=== PATIENT | female | born 1965 | race African-American/Black ===

== ENCOUNTER 2024-12-05 08:48 | Emergency (ER) | payer OTHER ==
--- OUTSIDE RECORDS SUMMARY | 2024-12-05 08:52 | XMS REPORT | Continuity of Care Document ---
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 Emergency X Gibran PAZ [facility] ERT [id number] [facility] 2021-07-17 20:07:00 2021-07-17 21:50:00 Emergency Gibran Paz [facility] 1.2.840.114 350.1.13.10 4.2.7.2.686 [id number] [facility] 2021-07-17 20:07:00 2021-07-17 21:50:00 Emergency X Gibran PAZ [facility] ERT [id number] [facility] 2021-05-27 14:52:04 2021-05-27 15:22:04 [facility] 1.2.840.114 350.1.13.10 4.2.7.2.686 [id number] [facility] 2021-05-27 15:00:00 2021-05-27 15:00:00 Outpatient ELLIOTT CANNON [facility] [id number] [facility] 2021-05-27 00:00:00 2021-05-27 00:00:00 Orders Only Doctor Unassigned, [place] [facility] 1.2.840.114 350.1.13.10 4.2.7.2.686 [id number] [facility] 2021-05-26 15:00:00 2021-05-26 15:00:00 Outpatient ELLIOTT CANNON [facility] [id number] [facility] 2021-01-28 00:00:00 2021-01-28 00:00:00 Orders Only Doctor Unassigned, [place] [facility] 1.2840.114 350.1.13.10 4.2.7.2.686 [id number] [facility] 2021-01-07 22:18:00 2021-01-07 22:59:00 Emergency Adolph Jerry [facility] 1.2840.114 350.1.13.10 4.2.7.2.686 [id number] [facility] 2020-11-01 13:45:00 2020-11-01 13:45:00 Outpatient [facility] [id number] [facility] 2020-10-04 13:35:00 2020-10-04 13:35:00 Outpatient [facility] [id number] [facility] 2020-04-12 00:00:00 2020-04-12 00:00:00 Patient Secure Msg Doctor Unassigned, [place] [facility] 1.2840.114 350.1.13.10 4.2.7.2.686 [id number] [facility] 2020-04-12 00:00:00 2020-04-12 00:00:00 Letter (Out) Rena Oden [facility] 1.2840.114 350.1.13.10 4.2.7.2.686 [id number] [facility] 2020-04-12 00:00:00 2020-04-12 00:00:00 Letter (Out) AkshatRena malave [facility] 1.2.840.114 350.1.13.10 4.2.7.2.686 [id number] 2020-04-10 15:00:34 2020-04-10 15:45:43 Laboratory Only Only, Adc Test Bryant Whalen [facility] 1.2.840.114 350.1.13.10 4.2.7.2.686 [id number] [facility] 2020-04-10 15:00:34 2020-04-10 15:45:43 Laboratory Only Only, Adc Test [facility] 1.2.840.114 350.1.13.10 4.2.7.2.686 [id number] 2020-04-10 14:15:00 2020-04-10 14:15:00 Outpatient R [facility] [id number] [facility] 2020-04-10 00:00:00 2020-04-10 00:00:00 Orders Only Doctor Unassigned, [place] [facility] 1.2.840.114 350.1.13.10 4.2.7.2.686 [id number] [facility] 2020-01-07 13:00:00 2020-01-07 13:00:00 Outpatient R ELLIOTT OLIVAS [facility] [id number] [facility] 2019-10-07 12:58:35 2019-10-07 16:01:06 Office Visit Elliott Olivas [facility] 1.2.840.114 350.1.13.10 4.2.7.2.686 [id number] [facility] 2019-10-07 13:00:00 2019-10-07 13:00:00 Outpatient ELLIOTT CANNON [facility] [id number] [facility] 2019-09-12 00:00:00 2019-09-12 00:00:00 Telephone Elliott Olivas [facility] 1.2.840.114 350.1.13.10 4.2.7.2.686 [id number] [facility] 2019-09-10 13:34:52 2019-09-10 14:41:20 Office Visit Elliott Olivas [facility] 1.2.840.114 350.1.13.10 4.2.7.2.686 [id number] [facility] 2019-09-10 13:00:00 2019-09-10 13:00:00 Outpatient ELLIOTT CANNON [facility] [id number] [facility] 2019-09-10 00:00:00 2019-09-10 00:00:00 Orders Only Doctor Unassigned, [place] [facility] 1.2.840.114 350.1.13.10 4.2.7.2.686 [id number] [facility] 2019-09-02 12:56:44 2019-09-02 15:43:21 Office Visit Elliott Olivas [facility] 1.2.840.114 350.1.13.10 4.2.7.2.686 [id number] [facility] 2019-09-02 13:00:00 2019-09-02 13:52:48 Outpatient ELLIOTT CANNON [facility] [id number] [facility] 2019-09-02 00:00:00 2019-09-02 00:00:00 Orders Only Doctor Unassigned, [place] [facility] 1.2.840.114 350.1.13.10 4.2.7.2.686 [id number] [facility] 2019-08-23 09:30:41 2019-08-23 11:18:00 Emergency Kim Huffman [facility] 1.2.840.114 350.1.13.10 4.2.7.2.686 [id number] [facility] 2019-08-23 09:30:41 2019-08-23 11:18:00 Emergency X KIM HUFFMAN [facility] ERT [id number] [facility] 2019-08-23 00:00:00 2019-08-23 00:00:00 Transition of Care DeangeloPato carlson 1.840.114 350.1.13.10 4.2.7.2.686 [id number] [facility] 2019-08-19 16:20:02 2019-08-22 11:40:00 Hospital Encounter Jovanny Davis [facility] 1.840.114 350.1.13.10 4.2.7.2.686 [id number] [facility] 2019-08-19 12:28:26 2019-08-19 14:59:00 Emergency X MONIK STEELE [facility] ERT [id number] [facility] 2019-08-12 00:00:00 2019-08-12 00:00:00 Orders Only Doctor Unassigned, [place] [facility] 1.2840.114 350.1.13.10 4.2.7.2.686 [id number] [facility] Results Test Description Test Time Test Comments Results Result Comments Source XR Foot 3+ vw right 15:15:20 EXAM: XR FOOT 3+ VW RIGHT, EXAM: XR ANKLE 3+ VW RIGHT, EXAM: XR TIBIA FIBULA 2 VW RIGHT HISTORY: 59 years old Female with right foot pain COMPARISON: None. FINDINGS: Radiographs of the right tibial/fibula, ankle and foot were obtained. Noacute fracture or dislocations. Alignment is within normal limits. Marginalosteophytosis about the knee and tibiotalar joint are noted with preservedjoint spaces. Dorsal and plantar calcaneal enthesophyte formation is noted.Round mineralization projecting over the soft tissue overlying the distalfibula may represent a phlebolith versus dystrophic calcification. Soft tissue swelling is noted about the lateral malleolus and dorsum of thefoot. Ankle joint effusion is suspected. [facility] XR Tibia fibula 2 vw right 15:15:20 EXAM: XR FOOT 3+ VW RIGHT, EXAM: XR ANKLE 3+ VW RIGHT, EXAM: XR TIBIA FIBULA 2 VW RIGHT HISTORY: 59 years old Female with right foot pain COMPARISON: None. FINDINGS: Radiographs of the right tibial/fibula, ankle and foot were obtained. Noacute fracture or dislocations. Alignment is within normal limits. Marginalosteophytosis about the knee and tibiotalar joint are noted with preservedjoint spaces. Dorsal and plantar calcaneal enthesophyte formation is noted.Round mineralization projecting over the soft tissue overlying the distalfibula may represent a phlebolith versus dystrophic calcification. Soft tissue swelling is noted about the lateral malleolus and dorsum of thefoot. Ankle joint effusion is suspected. [facility] XR Ankle 3+ vw right 15:15:20 EXAM: XR FOOT 3+ VW RIGHT, EXAM: XR ANKLE 3+ VW RIGHT, EXAM: XR TIBIA FIBULA 2 VW RIGHT HISTORY: 59 years old Female with right foot pain COMPARISON: None. FINDINGS: Radiographs of the right tibial/fibula, ankle and foot were obtained. Noacute fracture or dislocations. Alignment is within normal limits. Marginalosteophytosis about the knee and tibiotalar joint are noted with preservedjoint spaces. Dorsal and plantar calcaneal enthesophyte formation is noted.Round mineralization projecting over the soft tissue overlying the distalfibula may represent a phlebolith versus dystrophic calcification. Soft tissue swelling is noted about the lateral malleolus and dorsum of thefoot. Ankle joint effusion is suspected. [facility] COMPREHENSIVE METABOLIC [id number] 04:41:30* Test Item Value Reference Range Interpretation Comme nts GLUCOSE (test code = 2217) 109 MG/DL 70-99 H BUN (test code = 2208) 17 MG/DL 6-20 CREATININE (test code = 2214) 0.99 MG/DL 0.60-1.30 eGFR (2020 CKD-EPI) (test code = 54871) 66 ML/MIN/1.73 >60 CALC BUN/CREAT (test code = 2235) 17 RATIO 6-28 SODIUM (test code = 2231) 142 MEQ/L 133-146 POTASSIUM (test code = 8) 4.3 MEQ/L 3.5-5.4 CHLORIDE (test code = 2215) 106 MEQ/L 95-107 CARBON DIOXIDE (test code = 2205) 25 MEQ/L 19-31 CALCIUM (test code = 2208) 9.2 MG/DL 8.5-10.5 PROTEIN, TOTAL (test code = 2228) 7.0 G/DL 6.1-8.3 ALBUMIN (test code = 2200) 4.3 G/DL 3.5-5.2 CALC GLOBULIN (test code = 2239) 2.7 G/DL 1.9-3.7 CALC A/G RATIO (test code = 2233) 1.6 RATIO 1.0-2.6 BILIRUBIN, TOTAL (test code = 2206) 0.3 MG/DL See_Comment [Automated me ssage] The system which generated this result transmitted reference range: <=1.2. The reference range was not used to interpret this result as normal/abnormal. ALKALINE PHOSPHATASE (test code = 2203) 107 U/L 40-136 AST (test code = 2217) 20 U/L 9-40 ALT (test code = 2219) 16 U/L 5-40 UNLESS OTHERWISE INDICATED, ALL TESTING PERFORMED [facility] [place] [facility] [employer] [address] [place] [address] TAX EXPERT: MARCO GARCIA M.D. CLIA NUMBER [id number] [facility]. [id number] HEMOGLOBIN [id number] 03:54:58* Test Item Value Reference Range Interpretation Comme [facility] HEMOGLOBIN A1c (test code = 00614) 6.5 % 4.2-5.6 H [employer] GUIDELINES FOR HGB A1C: PREDIABETES/INCREASED RISK . . . . . . . 5.7-6.4% DIAGNOSIS OF DIABETES . . . . . . . . . >=6.5% WITH CONFIRMATION OR APPROPRIATE SYMPTOMS NOTE: ASSAY MAY BE AFFECTED BY HEMOGLOBINOPATHIES (SICKLE CELL ANEMIA, S-C DISEASE, OTHERS) OR ARTIFICIALLY LOWERED BY DECREASED RED CELL SURVIVAL (HEMOLYTIC ANEMIAS, BLOOD LOSS, ETC.). CONSIDER ALTERNATE TESTING OR LABORATORY CONSULTATION. HEMOGLOBIN A1c [ADDED]2022-03-12 00:00:00* Test Item Value Reference Range Interpretation Comme nts HEMOGLOBIN A1c (test code = 43933) 6.5 % LIPID PANEL [ADDED]2022-03-12 00:00:00* Test Item Value Reference Range Interpretation Comme nts CHOLESTEROL (test code = 2210) 210 MG/DL TRIGLYCERIDES (test code = 2232) 94 MG/DL HDL CHOLESTEROL (test code = 2220) 66 MG/DL CALC LDL CHOL (test code = 2237) 124 MG/DL RISK RATIO LDL/HDL (test cod e = 2238) 1.88 RATIO COMPREHENSIVE METABOLIC PANEL [ADDED]2022-03-12 00:00:00* Test Item Value Reference Range Interpretation Comme nts GLUCOSE (test code = 2217) 109 MG/DL BUN (test code = 2208) 17 MG/DL CREATININE (test code = 2214) 0.99 MG/DL eGFR (2020 CKD-EPI) (test co de = 76905) 66 ML/MIN/1.73 CALC BUN/CREAT (test code = 2235) 17 RATIO SODIUM (test code = 2231) 142 MEQ/L POTASSIUM (test code = 2228) 4.3 MEQ/L CHLORIDE (test code = 2215) 106 MEQ/L CARBON DIOXIDE (test code = 2206) 25 MEQ/L CALCIUM (test code = 2209) 9.2 MG/DL PROTEIN, TOTAL (test code = 2229) 7.0 G/DL ALBUMIN (test code = 2201) 4.3 G/DL CALC GLOBULIN (test code = 2240) 2.7 G/DL CALC A/G RATIO (test code = 2234) 1.6 RATIO BILIRUBIN, TOTAL (test code = 2207) 0.3 MG/DL ALKALINE PHOSPHATASE (test code = 2204) 107 U/L AST (test code = 2218) 20 U/L ALT (test code = 2219) 16 U/L OCCULT BLD,FECAL,IMMUNOASSAY [id number] 09:10:23* Test Item Value Reference Range Interpretation Comme nts OCCULT BLD, FECAL (test code = 09366) NEGATIVE NEGATIVE NOTE:2021-12-22 06:04:47* Test Item Value Reference Range Interpretation Comme nts NOTE: (test code = 998) (NOTE) IN ACCORDANCE [facility] FEDERAL GUIDELINES REQUIRING ALL VERBAL REQUESTS FOR LABORATORY TESTS TO BE ACCOMPANIED BY WRITTEN AUTHORIZATION WITHIN 30 DAYS OF THIS REQUEST, PLEASE SIGN BELOW AND RETURN A COPY OF THIS REPORT BY FAX TO THE LABORATORY SCANNING DEPARTMENT AT [phone]. PHYSICIAN'S SIGNATURE DATE UNLESS OTHERWISE INDICATED, ALL TESTING PERFORMED [facility] [employer] [address] [place] [address] TAX EXPERT: MARCO GARCIA M.D. [place] NUMBER [id number] [facility]. [id number] OCCULT BLD,FECAL,IMMUNOASSAY DIAG [ADDED]2021-12-22 00:00:00* Test Item Value Reference Range Interpretation Comme nts OCCULT BLD, FECAL (test code = 56678) NEGATIVE NOTE: [ADDED]2021-12-22 00:00:00* Test Item Value Reference Range Interpretation Comme nts NOTE: (test code = 998) (NOTE) COMPREHENSIVE METABOLIC [id number] 03:25:43* Test Item Value Reference Range Interpretation Comme nts GLUCOSE (test code = 2217) 100 MG/DL 70-99 H BUN (test code = 2208) 14 MG/DL 6-20 CREATININE (test code = 2214) 1.03 MG/DL 0.60-1.30 eGFR (2020 CKD-EPI) (test code = 90602) 63 ML/MIN/1.73 >60 CALC BUN/CREAT (test code = 2235) 14 RATIO 6-28 SODIUM (test code = 2231) 143 MEQ/L 133-146 POTASSIUM (test code = 2228) 4.2 MEQ/L 3.5-5.4 CHLORIDE (test code = 2215) 105 MEQ/L 95-107 CARBON DIOXIDE (test code = 2206) 24 MEQ/L 19-31 CALCIUM (test code = 2209) 9.5 MG/DL 8.5-10.5 PROTEIN, TOTAL (test code = 2229) 7.2 G/DL 6.1-8.3 ALBUMIN (test code = 2201) 4.3 G/DL 3.5-5.2 CALC GLOBULIN (test code = 2240) 2.9 G/DL 1.9-3.7 CALC A/G RATIO (test code = 2234) 1.5 RATIO 1.0-2.6 BILIRUBIN, TOTAL (test code = 2207) 0.5 MG/DL See_Comment [Automated me ssage] The system which generated this result transmitted reference range: <=1.2. The reference range was not used to interpret this result as normal/abnormal. ALKALINE PHOSPHATASE (test code = 2204) 110 U/L 40-136 AST (test code = 2218) 14 U/L 9-40 ALT (test code = 2219) 10 U/L 5-40 UNLESS OTHERWISE INDICATED, ALL TESTING PERFORMED [facility] [place] [facility] [employer] [address] [place] [address] TAX EXPERT: MARCO GARCIA M.D. CLIA NUMBER [id number] [facility]. [id number] LIPID [id number] 03:25:43* Test Item Value Reference Range Interpretation Comme nts CHOLESTEROL (test code = 2210) 211 MG/DL <200 H TRIGLYCERIDES (test code = 2232) 113 MG/DL <150 HDL CHOLESTEROL (test code = 2220) 70 MG/DL >39 CALC LDL CHOL (test code = 2237) 119 MG/DL <100 H NOTE: CALCULATED LDL IS BASED ON SAFIA-BROOKS METHOD WHICHINCLUDES ADJUSTABLE TRIGLYCERIDE:VLDL CHOLESTEROL RATIO.THIS FACTOR VARIES BY MEASURED TRIGLYCERIDE AND NON-HDLCHOLESTEROL CONCENTRATIONS WITH INCREASED CALCULATED LDL SEENIN HIGHER TRIGLYCERIDE OR LOWER NON-HDL SPECIMENS. FOR MOREINFORMATION, SEE CLIENT ANNOUNCEMENT AT [email or web address] /[email or web address] RISK RATIO LDL/HDL (test code = 2238) 1.70 RATIO <3.22 HEMOGLOBIN [id number] 02:20:53* Test Item Value Reference Range Interpretation Comme nts HEMOGLOBIN A1c (test code = 25387) 6.1 % 4.2-5.6 H LIPID PANEL [ADDED]2021-11-19 00:00:00* Test Item Value Reference Range Interpretation Comme nts CHOLESTEROL (test code = 2210) 211 MG/DL TRIGLYCERIDES (test code = 2232) 113 MG/DL HDL CHOLESTEROL (test code = 2220) 70 MG/DL CALC LDL CHOL (test code = 2237) 119 MG/DL RISK RATIO LDL/HDL (test cod e = 2238) 1.70 RATIO HEMOGLOBIN A1c [ADDED]2021-11-19 00:00:00* Test Item Value Reference Range Interpretation Comme nts HEMOGLOBIN A1c (test code = 69328) 6.1 % COMPREHENSIVE METABOLIC PANEL [ADDED]2021-11-19 00:00:00* Test Item Value Reference Range Interpretation Comme nts GLUCOSE (test code = 2217) 100 MG/DL BUN (test code = 2208) 14 MG/DL CREATININE (test code = 2214) 1.03 MG/DL eGFR (2020 CKD-EPI) (test co de = 54211) 63 ML/MIN/1.73 CALC BUN/CREAT (test code = 2235) 14 RATIO SODIUM (test code = 2231) 143 MEQ/L POTASSIUM (test code = 2228) 4.2 MEQ/L CHLORIDE (test code = 2215) 105 MEQ/L CARBON DIOXIDE (test code = 2206) 24 MEQ/L CALCIUM (test code = 2209) 9.5 MG/DL PROTEIN, TOTAL (test code = 2229) 7.2 G/DL ALBUMIN (test code = 2201) 4.3 G/DL CALC GLOBULIN (test code = 2240) 2.9 G/DL CALC A/G RATIO (test code = 2234) 1.5 RATIO BILIRUBIN, TOTAL (test code = 2207) 0.5 MG/DL ALKALINE PHOSPHATASE (test code = 2204) 110 U/L AST (test code = 2218) 14 U/L ALT (test code = 2219) 10 U/L Notes Date/Time Note Provider Source 2024-11-28 10:42:58 Pt given printed and verbal discharge instructions regarding acute right ankle pain. Prescriptions provided x1 Pt verbalized understanding of instructions, pt awake alert oriented, resp reg unlabored, skin w/d, color appropriate for race, moves all ext well,pt encouraged to follow up with pcp. Advised to seek medical attention for new/prolonged/worsening of symptoms. No adverse reaction to meds given in ER noted upon discharge Awake, alert oriented, resp reg unlabored, skin w/d, pt leaving amb with steady gait, in no apparent distress, [facility] 2024-11-28 08:29:47 Pt arrived ambulatory with complaints of R ankle pain. 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 Pt given printed and verbal discharge instructions regarding left foot pain and muscle strain of the left upper arm, encouraged hydration. Prescriptions provided. Discussed naproxen and to take with food to avoid GI distress. Pt verbalized understanding of instructions, pt awake alert oriented, resp reg unlabored, skin w/d, color appropriate for race, moves all ext well, pt encouraged to follow up with pcp. Advised to seek medical attention for new/prolonged/worsening of symptoms. Symptoms addressed. No adverse reaction to meds given in ER noted upon discharge. Pt leaving amb with steady gait, in no apparent distress. Phoebe Servin RN [facility] 2023-04-12 09:28:10 Formatting of this n ote might be different from the original. Pt fell over a month ago. Has intermittent pain to left foot. Tight feeling when she bends left wrist back with pain that radiates up forearm. Xiomara Harris RN [facility] 2023-03-19 23:12:39 Formatting of this n ote might be different from the original. Pt given printed and verbal discharge instructions regarding fall/knee contusion/HTN, encouraged hydration, Discussed ibuprofen and to take with food to avoid GI distress, alternate with Tylenol to help with pain and/or fever Pt verbalized understanding of instructions,pt encouraged to follow up with pcp Advised to seek medical attention for new/prolonged/worsening of symptoms, No adverse reaction to meds given in ER noted upon discharge Awake, alert oriented, resp reg unlabored, skin w/d, pt leaving in no apparent distress, [facility] 2023-03-19 21:11:38 Formatting of this n ote might be different from the original. CC: Pt slipped and fell in [employer], reports doing the splits backwards x at 2 hrs ago. Her left knee has an abrasion and is painful and her left hand hurts. No OTC meds PMHx: DM, HTN Awake, alert, oriented, resp reg unlabored, skin warm, color appropriate for race, moves all ext without difficulty, amb with steady gait Madelin Barreto RN [facility]
[2024-12-05] MEDS ORDERED: KETOROLAC 30 MG/ML INJ ONE (09:51)
[2024-12-05] MEDS ORDERED: ONDANSETRON 4 MG/2 ML VIAL ONE (09:51)
[2024-12-05] MEDS ORDERED: DIAZEPAM 5 MG TABLET ONE (09:52)
[2024-12-05] MEDS ORDERED: NA CHLORIDE 0.9% 500 ML ONE (09:53)
[2024-12-05 09:59] LABS: Absolute Basophils 0.1 K/uL (0-0.5); Absolute Eosinophils 0.1 K/uL (0-0.5); Absolute Lymphocytes (CBC) 2.9 K/uL (0.7-4.9); Absolute Monocytes 0.7 K/uL (0.1-1.3); Absolute Neutrophil 4.6 K/uL (1.8-8.0); Basophils % 1.1 % (0-1.3); Eosinophils % 1.5 % (0-4.4); Hematocrit 34.8 % (36.0-45.0); Hemoglobin 11.7 g/dL (12.0-15.0); Lymphocytes % 34.5 % (15.3-44.8); MCH 28.1 pg (27.0-35.0); MCHC 33.6 g/dL (32.0-36.0); MCV 83.7 fL (80-100); MPV 8.5 fL (7.6-11.3); Monocytes % 8.3 % (3.3-12.3); Neutrophils % 54.6 % (41.7-73.7); Platelets 270 thou/uL (152-406); RBC Red Blood Cell Count 4.15 M/uL (3.86-4.86); Red Cell Distribution Width 15.2 % (12.1-15.2)
[2024-12-05 10:17] LABS: Specific Gravity 1.012 (1.005-1.030); Urine Bilirubin NEGATIVE (Negative); Urine Blood Negative (Negative); Urine Clarity Clear (Clear); Urine Color Colorless (Yellow); Urine Glucose NEGATIVE (Negative); Urine Ketones NEGATIVE (Negative); Urine Microscopic Reflex YN NO UMIC; Urine Nitrite NEGATIVE (Negative); Urine Protein NEGATIVE (Negative); Urine Urobilinogen Normal (Normal); Urine pH 6.5 (5.0-7.0)
[2024-12-05 10:37] LABS: ALT/SGPT 25 U/L (13-56); AST/SGOT 16 U/L (15-37); Albumin 3.6 g/dL (3.4-5.0); Albumin/Globulin Ratio 0.8 (1.1-1.8); Alkaline Phosphatase 108 U/L (45-117); Anion Gap 12.6 mEq/L (5.0-15.0); BUN Blood Urea Nitrogen 18 mg/dL (7-18); Bicarbonate 26 mEq/L (21-32); Bilirubin Total 0.4 mg/dL (0.2-1.0); Globulin 4.3 g/dL (2.3-3.5); Glomerular Filtration Rate 50 ml/min (=/>90); Glucose Level 122 mg/dL (74-106); Lipase 40 U/L (13-75); Potassium 3.6 mEq/L (3.5-5.1); Protein, Total 7.9 g/dL (6.4-8.2); Sodium Level 139 mEq/L (136-145)
[2024-12-05 10:42] LABS: Bilirubin Direct < 0.2 mg/dL (0-0.2); Bilirubin Indirect, Calculated 0.2 mg/dL (0.2-0.8)
--- NOTE | 2024-12-05 11:34 | RAD REPORT ---
EXAMINATION: CT HEAD WITHOUT CONTRAST CT CERVICAL SPINE WITHOUT CONTRAST CLINICAL INDICATION: Head and neck injury status post fall. Head and neck pain TECHNIQUE: Axial CT images from the skull base to the vertex without intravenous contrast. Axial CT i mages through the cervical spine were obtained without intravenous contrast. Sagittal and coronal reformatted images were created from the data set. Coronal and sagittal reformatted images were creat ed from the data set. One or more of the following dose reduction techniques were used: Automated exposure control, adjustment of the mA and/or kV according to patient size, and/or iterative reconstr uction. Unless otherwise specified, incidental findings do not require dedicated imaging follow-up. [id number]. Comparison: none FINDINGS: An intracranial bleed is not seen. Ventricles are normal in caliber. No significant hypodensity within the brain No extra-axial fluid collection. No fluid within the sinuses/mastoids No fracture or dislocation is seen involving the cervical spine. IMPRESSION: No acute intracranial abnormality noted A cervical fracture is not seen. If the patient continues to have symptoms to suggest acute TIMBER ROBBER/spinal pathology then MRI would be rec ommended
--- NOTE | 2024-12-05 11:39 | RAD REPORT ---
EXAM: Chest Abdomen Pelvis W Cont CLINICAL INDICATION: Chest and abdominal pain TECHNIQUE: CT chest, abdomen and pelvis was performed, with 100 cc Isovue-300 IV contrast, as per de partment protocol. Axial, sagittal and coronal reconstructions were obtained. One or more of the following dose reduction techniques were used: Automated exposure control, adjustment of the mA and/o r kV according to the patient size, and/or iterative reconstruction. Unless otherwise specified, incidental findings do not require dedicated imaging follow-up. [id number]. Oral contrast not given. This limits evaluation of the bowel. COMPARISON: None FINDINGS: A pulmonary contusion not seen. No mediastinal hematoma noted No pleural effusion.. No pericardial effusion Liver, spleen, pancreas, adrenals, kidneys and bladder do not demonstrate an acute traumatic injury. There is no evidence of diverticulitis IVC filter in place. Cortical irregularity proximal to mid diaphysis left humerus. IMPRESSION: Cortical irregularity left humerus may be secondary to patient motion artifact. Fracture can also have this appearance. This should be correlated clinically. If uncertain and x-ray can be obtained.
--- NOTE | 2024-12-05 11:46 | RAD REPORT ---
Exam:Ankle Left 3 View HISTORY: left ankle pain FINDINGS: No fracture or dislocation is seen Soft tissue swelling
--- NOTE | 2024-12-05 12:09 | RAD REPORT ---
Exam:Knee Left 3 View HISTORY: Left knee pain FINDINGS: 7 mm bony density adjacent to the lateral aspect of the lateral femoral condyle likely an ossicle No fracture or dislocation seen. No significant joint effusion If the patient continues to have symptoms to suggest an occult fracture, ligamentous or meniscal inju ry then MRI would be recommended
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
--- NOTE | 2024-12-05 12:29 | RAD REPORT ---
Exam:Humerus Left CLINICAL HISTORY: Left arm pain FINDINGS: No fracture seen Small exostosis distal diaphysis left humerus
[2024-12-05 12:43] VITALS: BP 115/74; TEMP 98.4; O2SAT 98
== END 2024-12-05 12:33 | disposition home or self-care (01) ==
LOC: ER 08:48
DX: S16.1XXA Strain of muscle, fascia and tendon at neck level, initial encounter (principal); S93.492A Sprain of other ligament of left ankle, initial encounter; S80.01XA Contusion of right knee, initial encounter; V49.49XA Driver injured in collision with other motor vehicles in traffic accident, initial encounter
CPT/HCPCS: 96361; 85025; 80048; 36415; 86900; 86850; 86901; 80076; 81003; 83690; 70450; 72125; 71260; 74177; 73060; 73562; 73610; 96375; 96374; 99284; Q9967; J2405; J7040